=== PATIENT | female | born 1995 | race Caucasian/White ===

== ENCOUNTER → 2024-10-17 14:24 | Outpatient (BNVA) | payer OTHER, SELFPAY | PROVIDERS: Visit Provider Nurse Practitioner Women's Health | DX: N92.6 Irregular menstruation, unspecified (principal) | CPT/HCPCS: 81025; 84702 ==

== ENCOUNTER → 2024-10-31 10:36 | Outpatient (BNVA) | payer OTHER, SELFPAY | PROVIDERS: Visit Provider Nurse Practitioner Women's Health | DX: Z36.87 Encounter for antenatal screening for uncertain dates (principal) | CPT/HCPCS: 76801 ==

== ENCOUNTER → 2024-11-29 13:48 | Outpatient (BNVA) | payer OTHER, SELFPAY | PROVIDERS: Visit Provider Obstetrics & Gynecology | DX: Z34.01 Encounter for supervision of normal first pregnancy, first trimester (principal); Z3A.10 10 weeks gestation of pregnancy | CPT/HCPCS: 80307; 84315; 84443; 86592; 86762; 86803; 86850; 86900; 87086; 87340; 87491; 87591; 87661; 87806 ==

== ENCOUNTER → 2024-12-10 09:37 | Outpatient (BNVA) | payer OTHER, SELFPAY | PROVIDERS: Visit Provider Obstetrics & Gynecology | DX: O26.891 Other specified pregnancy related conditions, first trimester (principal); Z3A.12 12 weeks gestation of pregnancy; Z67.91 Unspecified blood type, Rh negative | CPT/HCPCS: 87624 ==

== ENCOUNTER → 2025-01-08 14:31 | Outpatient (BNVA) | payer OTHER, SELFPAY | PROVIDERS: Visit Provider Nurse Practitioner Women's Health | DX: Z34.02 Encounter for supervision of normal first pregnancy, second trimester (principal); Z67.91 Unspecified blood type, Rh negative; Z3A.16 16 weeks gestation of pregnancy | CPT/HCPCS: 82105; 84315; 85025 ==

== ENCOUNTER → 2025-02-04 15:31 | Outpatient (BNVA) | payer OTHER, SELFPAY | PROVIDERS: Visit Provider Obstetrics & Gynecology | DX: Z34.02 Encounter for supervision of normal first pregnancy, second trimester (principal); Z67.91 Unspecified blood type, Rh negative | CPT/HCPCS: 82105 ==

== ENCOUNTER → 2025-02-11 08:56 | Outpatient (BNVA) | payer OTHER, SELFPAY | PROVIDERS: Visit Provider Obstetrics & Gynecology | DX: Z34.02 Encounter for supervision of normal first pregnancy, second trimester (principal) | CPT/HCPCS: 84315 ==

== ENCOUNTER 2025-03-12 11:10 | Outpatient (CLI) | payer OTHER, SELFPAY ==
[2025-03-12 11:15] VITALS: BMI 25.4
[2025-03-12 11:27] VITALS: BP 123/58; PULSE 73
[2025-03-12 11:49] LABS: Nitrazine Paper, PH Negative
[2025-03-12 11:52] LABS: Glucose Urine UA 2+ (Normal); Nitrate Urine Negative (Negative); Specific Gravity, Urine 1.014 (1.005-1.030)
[2025-03-12 11:57] VITALS: BP 108/57; PULSE 75
[2025-03-12 12:25] VITALS: BP 108/57; PULSE 75; RESP 17; TEMP 36.6; O2SAT 100
== END 2025-03-12 12:25 | disposition home or self-care (01) ==
LOC: OPOB 11:14 → OBGYN 11:14
PROVIDERS: Visit Provider Obstetrics & Gynecology
DX: O26.899 Other specified pregnancy related conditions, unspecified trimester (principal); Z3A.00 Weeks of gestation of pregnancy not specified; N89.8 Other specified noninflammatory disorders of vagina
CPT/HCPCS: 81001; 82950; 83986; 84112; 84315; 87086; 99211